=== PATIENT | female | born 2000 | race Caucasian/White ===

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

== ENCOUNTER 2020-04-05 17:01 | Emergency (ER) | payer OTHER ==
[~2020-04-05] VITALS: Ht 144.7 cm; Wt 72.6 kg
[2020-04-05] MEDS ORDERED: NAPROXEN D/R500 MG PO (21:57)
[2020-04-05] MEDS ORDERED: Orphenadrine C100 MG PO (21:57)
[2020-04-05 22:08] VITALS: BP 108/57
== END 2020-04-05 22:08 | disposition home or self-care (01) ==
LOC: ED 17:01
DX: S16.1XXA Strain of muscle, fascia and tendon at neck level, initial encounter (principal); S46.911A Strain of unspecified muscle, fascia and tendon at shoulder and upper arm level, right arm, initial encounter; J45.909 Unspecified asthma, uncomplicated; Z79.899 Other long term (current) drug therapy; V89.2XXA Person injured in unspecified motor-vehicle accident, traffic, initial encounter; Y93.89 Activity, other specified; Y92.89 Other specified places as the place of occurrence of the external cause; Y99.8 Other external cause status

== ENCOUNTER → 2020-07-08 | Outpatient (CLI) | payer OTHER ==
[~2020-07-08] MED LIST changes: +NAPROXEN D/R500 MG PO; +Orphenadrine C100 MG PO
== END | disposition home or self-care (01) ==
LOC: LAB
PROVIDERS: ATTEND Internal Medicine Gastroenterology
DX: R19.7 Diarrhea, unspecified (principal)

== ENCOUNTER → 2020-07-09 | Outpatient (CLI) | payer OTHER ==
[2020-07-11 16:08] LABS: ACCA 9 units (0-90); ALCA 3 units (0-60); AMCA 16 units (0-100); ATYPICAL PANCA Negative (Negative); GASCA 24 units (0-50)
== END | disposition home or self-care (01) ==
LOC: LAB 08:41 → US 10:00
PROVIDERS: ATTEND Internal Medicine Gastroenterology
DX: R11.2 Nausea with vomiting, unspecified (principal); R10.11 Right upper quadrant pain

== ENCOUNTER → 2021-07-05 | Outpatient (CLI) | payer OTHER ==
[2021-07-10 00:06] LABS: TB1 Ag VALUE 0.08 IU/mL (.)
== END | disposition home or self-care (01) ==
LOC: LAB 16:53
PROVIDERS: ATTEND Family Medicine
DX: Z02.0 Encounter for examination for admission to educational institution (principal)

== ENCOUNTER → 2021-07-24 | Outpatient (CLI) | payer OTHER ==
[2021-07-24 09:42] LABS: BETA-HCG, QUANT < 1.0 mIU/mL (1-3)
[2021-07-25 04:06] LABS: FOLLICLE STIMULATING HORMONE 7.3 mIU/mL (.); LUTEINIZING HORMONE 7.6 mIU/mL (.); PROLACTIN 13.9 ng/mL (4.8-23.3)
== END | disposition home or self-care (01) ==
LOC: LAB 08:46
PROVIDERS: ATTEND Nurse Practitioner Women's Health
DX: N93.9 Abnormal uterine and vaginal bleeding, unspecified (principal)

== ENCOUNTER 2021-08-15 20:14 | Emergency (ER) | payer OTHER ==
[~2021-08-15] VITALS: Ht 144.7 cm; Wt 90.7 kg
[2021-08-15 20:28] VITALS: BP 128/74
[2021-08-15 21:00] LABS: BASO % 0.4 % (0.0-1.0); EOS # 0.5 10*3/uL (0.0-0.4); HEMATOCRIT 38.9 % (37.0-47.0); LYMPH # 2.4 10*3/uL (1.3-4.4); LYMPH % 30.4 % (27.0-41.0); MEAN CELL VOLUME 83.7 fl (81.0-99.0); MEAN CORPUSCULAR HGB 27.1 pg (27.0-31.0); MEAN CORPUSCULAR HGB CONC 32.4 g/dl (33.0-37.0); MEAN PLATELET VOLUME 10.5 fl (9.6-12.3); MONO # 0.8 10*3/uL (0.1-1.0); MONO % 10.3 % (3.0-9.0); NEUT # 4.2 10*3/uL (2.3-7.9); NEUT % 52.7 % (47.0-73.0); PLATELET COUNT AUTOMATED 264 10*3/uL (130-400); RED BLOOD COUNT 4.65 10*6/uL (4.10-5.10); RED CELL DISTRI WIDTH 12.5 % (0-14.5)
[2021-08-15 21:16] LABS: ALBUMIN 3.7 gm/dl (3.1-4.5); ALKALINE PHOSPHATASE 75 U/L (45-117); BUN 9 mg/dl (7-24); CHLORIDE 112 mmol/L (98-107); CREATININE 0.58 mg/dL (0.55-1.02); POTASSIUM 3.7 mmol/L (3.5-5.1); SGOT/AST 50 IU/L (3-35); SGPT/ALT 101 U/L (12-78); SODIUM 142 mmol/L (136-145); TOTAL PROTEIN 7.2 gm/dL (6.4-8.2)
[2021-08-15 21:19] LABS: B-hCG (QUALITATIVE) NEGATIVE (NEGATIVE)
[2021-08-15 22:28] LABS: BILIRUBIN Negative (Negative); BLOOD Negative (Negative); CLARITY Clear (Clear); COLOR Yellow (Yellow); GLUCOSE Negative (Negative); KETONE Negative (Negative); LEUKO ESTERASE Negative (Negative); NITRITE Negative (Negative); PH 7.5 (4.5-8.0); SPECIFIC GRAVITY 1.015 (1.001-1.030); UROBILINOGEN 0.2 E.U./dl (0.0-1.0)
[2021-08-15 22:47] LABS: BACTERIA 1+; EPITHELIAL CELLS 16-20; RBC 0-2 rbc/hpf (0-2)
[2021-08-16] MEDS ORDERED: HYDROCODON-ACE1 EACH PO (01:24)
== END 2021-08-16 01:34 | disposition home or self-care (01) ==
LOC: ED 20:14
PROVIDERS: Physician Assistant
DX: R10.32 Left lower quadrant pain (principal)

== ENCOUNTER 2021-08-16 23:38 | Emergency (ER) | payer OTHER ==
[~2021-08-16 23:38] MED LIST changes: +HYDROCODON-ACE1 EACH PO
[2021-08-16 23:49] VITALS: BP 121/84
[2021-08-18] MEDS ORDERED: Synthroid,Levo50 MCG PO (16:10)
[2021-08-18] MEDS ORDERED: PROTONIX40 MG PO (16:10)
[2021-08-18] MEDS ORDERED: CLARITIN10 MG PO (16:10)
== END 2021-08-17 01:36 | disposition left against medical advice (07) ==
LOC: ED 23:38
DX: R10.2 Pelvic and perineal pain (principal)

== ENCOUNTER 2021-08-18 15:27 | Emergency (ER) | payer OTHER ==
[~2021-08-18] VITALS: Ht 144.7 cm; Wt 90.7 kg
[2021-08-18 15:47] VITALS: BP 122/74
[2021-08-18] MEDS ORDERED: PROTONIX40 MG PO (16:10)
[2021-08-18] MEDS ORDERED: CLARITIN10 MG PO (16:10)
[2021-08-18] MEDS ORDERED: Synthroid,Levo50 MCG PO (16:10)
[2021-08-18 16:47] LABS: BASO # 0.1 10*3/uL (0.0-0.1); BASO % 0.6 % (0.0-1.0); EOS # 0.5 10*3/uL (0.0-0.4); EOS % 6.3 % (1.0-4.0); HEMATOCRIT 40.5 % (37.0-47.0); LYMPH # 1.9 10*3/uL (1.3-4.4); LYMPH % 24.5 % (27.0-41.0); MEAN CELL VOLUME 82.5 fl (81.0-99.0); MEAN CORPUSCULAR HGB 26.7 pg (27.0-31.0); MEAN CORPUSCULAR HGB CONC 32.3 g/dl (33.0-37.0); MEAN PLATELET VOLUME 10.8 fl (9.6-12.3); MONO # 0.7 10*3/uL (0.1-1.0); MONO % 8.4 % (3.0-9.0); NEUT # 4.7 10*3/uL (2.3-7.9); NEUT % 59.9 % (47.0-73.0); PLATELET COUNT AUTOMATED 276 10*3/uL (130-400); RED BLOOD COUNT 4.91 10*6/uL (4.10-5.10); RED CELL DISTRI WIDTH 12.4 % (0-14.5); WHITE BLOOD COUNT 7.9 10*3/uL (4.8-10.8)
[2021-08-18 17:09] LABS: ALBUMIN 4.2 gm/dl (3.1-4.5); ALKALINE PHOSPHATASE 70 U/L (45-117); BUN 8 mg/dl (7-24); CHLORIDE 109 mmol/L (98-107); CREATININE 0.57 mg/dL (0.55-1.02); LIPASE 57 U/L (73-393); POTASSIUM 3.9 mmol/L (3.5-5.1); SGOT/AST 154 IU/L (3-35); SGPT/ALT 202 U/L (12-78); SODIUM 140 mmol/L (136-145); TOTAL PROTEIN 7.8 gm/dL (6.4-8.2)
[2021-08-18 17:32] LABS: BILIRUBIN Negative (Negative); BLOOD Negative (Negative); CLARITY Clear (Clear); COLOR Dark Yellow (Yellow); GLUCOSE Negative (Negative); KETONE Negative (Negative); LEUKO ESTERASE Negative (Negative); NITRITE Positive (Negative)
[2021-08-18 18:02] LABS: RBC 0-2 rbc/hpf (0-2); WBC 0-2 wbc/hpf (0-5)
== END 2021-08-18 19:38 | disposition admitted as inpatient to this hospital (09) ==
LOC: ED 15:27 → EDHOLD 18:52 → ED 19:38
PROVIDERS: Physician Assistant
DX: R10.30 Lower abdominal pain, unspecified (principal); R10.2 Pelvic and perineal pain; Z79.899 Other long term (current) drug therapy

== ENCOUNTER 2021-08-18 18:59 | Inpatient (IN) | payer OTHER ==
[~2021-08-18] VITALS: Ht 144.8 cm; Wt 90.4 kg
[~2021-08-18 18:59] MED LIST changes: +CLARITIN10 MG PO; +PROTONIX40 MG PO; +Synthroid,Levo50 MCG PO
[2021-08-18 20:19] VITALS: BP 105/51
[2021-08-19] VITALS (8 sets, daily range): BP systolic 105–131; BP diastolic 52–72
[2021-08-19 00:36] LABS: BETA-HCG, QUANT < 1.0 mIU/mL (1-3)
[2021-08-19 06:13] LABS: CHLORIDE 110 mmol/L (98-107); POTASSIUM 3.3 mmol/L (3.5-5.1); SGOT/AST 135 IU/L (3-35); SGPT/ALT 194 U/L (12-78); SODIUM 140 mmol/L (136-145)
[2021-08-19 06:19] LABS: BASO # 0.1 10*3/uL (0.0-0.1); BASO % 0.7 % (0.0-1.0); EOS # 0.6 10*3/uL (0.0-0.4); EOS % 6.9 % (1.0-4.0); HEMATOCRIT 39.6 % (37.0-47.0); LYMPH % 35.4 % (27.0-41.0); MEAN CELL VOLUME 85.2 fl (81.0-99.0); MEAN CORPUSCULAR HGB 26.9 pg (27.0-31.0); MEAN CORPUSCULAR HGB CONC 31.6 g/dl (33.0-37.0); MEAN PLATELET VOLUME 11.2 fl (9.6-12.3); MONO # 0.9 10*3/uL (0.1-1.0); MONO % 10.7 % (3.0-9.0); NEUT # 3.9 10*3/uL (2.3-7.9); NEUT % 46.1 % (47.0-73.0); PLATELET COUNT AUTOMATED 259 10*3/uL (130-400); RED BLOOD COUNT 4.65 10*6/uL (4.10-5.10); RED CELL DISTRI WIDTH 12.5 % (0-14.5); WHITE BLOOD COUNT 8.5 10*3/uL (4.8-10.8)
[2021-08-19 06:38] LABS: ALBUMIN 3.7 gm/dl (3.1-4.5); ALKALINE PHOSPHATASE 67 U/L (45-117); BUN 9 mg/dl (7-24); CREATININE 0.53 mg/dL (0.55-1.02); FREE T4 1.19 ng/dl (0.76-1.46); TOTAL PROTEIN 6.9 gm/dL (6.4-8.2)
[2021-08-19 07:59] LABS: BILIRUBIN Negative (Negative); BLOOD Negative (Negative); CLARITY Clear (Clear); COLOR Dark Yellow (Yellow); GLUCOSE Negative (Negative); KETONE Negative (Negative); LEUKO ESTERASE Negative (Negative); NITRITE Positive (Negative); SPECIFIC GRAVITY <= 1.005 (1.001-1.030)
[2021-08-19 09:13] LABS: BACTERIA TRACE; EPITHELIAL CELLS 0-2; WBC 0-2 wbc/hpf (0-5)
[2021-08-20] VITALS: BP 131/72
[2021-08-20 05:06] LABS: HEP B CORE AB, IGM Negative (Negative); HEPATITIS B SURFACE AG Negative (Negative); HEPATITIS C VIRUS ANTIBODY <0.1 s/co (0.0-0.9)
[2021-08-20 06:38] LABS: BASO % 0.5 % (0.0-1.0); EOS # 0.5 10*3/uL (0.0-0.4); EOS % 6.3 % (1.0-4.0); HEMATOCRIT 39.6 % (37.0-47.0); LYMPH # 2.8 10*3/uL (1.3-4.4); LYMPH % 36.2 % (27.0-41.0); MEAN CELL VOLUME 86.7 fl (81.0-99.0); MEAN CORPUSCULAR HGB 27.4 pg (27.0-31.0); MEAN CORPUSCULAR HGB CONC 31.6 g/dl (33.0-37.0); MEAN PLATELET VOLUME 11.1 fl (9.6-12.3); MONO # 0.7 10*3/uL (0.1-1.0); MONO % 9.4 % (3.0-9.0); NEUT # 3.7 10*3/uL (2.3-7.9); NEUT % 47.3 % (47.0-73.0); PLATELET COUNT AUTOMATED 240 10*3/uL (130-400); RED BLOOD COUNT 4.57 10*6/uL (4.10-5.10); RED CELL DISTRI WIDTH 12.6 % (0-14.5); WHITE BLOOD COUNT 7.8 10*3/uL (4.8-10.8)
[2021-08-20 07:01] LABS: ALBUMIN 3.2 gm/dl (3.1-4.5); BUN 10 mg/dl (7-24); CHLORIDE 112 mmol/L (98-107); CREATININE 0.39 mg/dL (0.55-1.02); SGOT/AST 136 IU/L (3-35); SGPT/ALT 188 U/L (12-78); SODIUM 137 mmol/L (136-145)
[2021-08-20 07:03] LABS: TOTAL PROTEIN 6.9 gm/dL (6.4-8.2)
[2021-08-20 07:05] LABS: POTASSIUM 4.3 mmol/L (3.5-5.1)
[2021-08-20 07:12] LABS: ALKALINE PHOSPHATASE 61 U/L (45-117)
[2021-08-20 08:00] VITALS: BP 124/72
[2021-08-20] MEDS ORDERED: PROBIOTIC1 EAC1 PO (11:47)
[2021-08-20] MEDS ORDERED: IBU800 MG PO (11:55)
[2021-08-20] MEDS ORDERED: MORGIDOX100 MG PO (11:55)
[2021-08-20] MEDS ORDERED: FLUCONAZOLE100 MG PO (11:55)
[2021-08-20] MEDS ORDERED: METRONIDAZOLE500 M1 PO (11:55)
[2021-08-20] MEDS ORDERED: ENDOCET 5-3251 EACH PO (11:56)
[2021-08-20 12:00] VITALS: BP 118/70
== END 2021-08-20 14:30 | disposition home or self-care (01) | DRG 758 ==
LOC: EDHOLD 18:59 → 5E 18:59
PROVIDERS: Internal Medicine; Nurse Practitioner Adult Health; Student in an Organized Health Care Education/Training Program; ADMIT Family Medicine; ATTEND Family Medicine
DX: N73.9 Female pelvic inflammatory disease, unspecified (principal); N39.0 Urinary tract infection, site not specified; K52.9 Noninfective gastroenteritis and colitis, unspecified; N76.0 Acute vaginitis; B37.3 Candidiasis of vulva and vagina; R74.01 Elevation of levels of liver transaminase levels; R73.9 Hyperglycemia, unspecified; E87.8 Other disorders of electrolyte and fluid balance, not elsewhere classified; E03.9 Hypothyroidism, unspecified; B96.89 Other specified bacterial agents as the cause of diseases classified elsewhere; K75.81 Nonalcoholic steatohepatitis (NASH); Z79.899 Other long term (current) drug therapy

== ENCOUNTER → 2021-08-22 | Outpatient (CLI) | payer OTHER ==
[~2021-08-22] MED LIST changes: +ENDOCET 5-3251 EACH PO; +FLUCONAZOLE100 MG PO; +IBU800 MG PO; +METRONIDAZOLE500 M1 PO; +MORGIDOX100 MG PO; +PROBIOTIC1 EAC1 PO
[2021-08-22 14:34] LABS: HEMATOCRIT 40.9 % (37.0-47.0); MEAN CELL VOLUME 83.5 fl (81.0-99.0); MEAN CORPUSCULAR HGB 27.6 pg (27.0-31.0); RED BLOOD COUNT 4.9 10*6/uL (4.10-5.10); RED CELL DISTRI WIDTH 12.7 % (0-14.5); WHITE BLOOD COUNT 7.3 10*3/uL (4.8-10.8)
[2021-08-22 14:53] LABS: ALKALINE PHOSPHATASE 66 U/L (45-117); BUN 9 mg/dl (7-24); CHLORIDE 108 mmol/L (98-107); CHOLESTEROL 164 mg/dL (<200); CREATININE 0.52 mg/dL (0.55-1.02); POTASSIUM 4.1 mmol/L (3.5-5.1); SGOT/AST 128 IU/L (3-35); SGPT/ALT 232 U/L (12-78); SODIUM 139 mmol/L (136-145); TOTAL PROTEIN 7.9 gm/dL (6.4-8.2); TRIGLYCERIDES 119 mg/dl (<150)
[2021-08-22 14:54] LABS: LDL CHOLESTEROL 97 mg/dL (9-159)
[2021-08-22 15:16] LABS: VITAMIN D, 25-HYDROXY 35.5 ng/mL (30-100)
[2021-08-23 08:07] LABS: HEP B CORE AB, IGM Negative (Negative); HEPATITIS B SURFACE AG Negative (Negative); HEPATITIS C VIRUS ANTIBODY 0.1 s/co (0.0-0.9)
[2021-08-23 09:06] LABS: RHEUMATOID ARTHRITIS FACTOR <10.0 IU/mL (0.0-13.9)
[2021-08-23 16:07] LABS: ANTI-SMOOTH MUSCLE ANTIBODY 6 Units (0-19)
[2021-08-24 09:06] LABS: TESTOSTERONE FREE, (DIRECT) 4.5 pg/mL (0.0-4.2)
== END | disposition home or self-care (01) ==
LOC: LAB 13:46
PROVIDERS: ATTEND Family Medicine
DX: R79.89 Other specified abnormal findings of blood chemistry (principal); E55.9 Vitamin D deficiency, unspecified; R53.83 Other fatigue; E28.2 Polycystic ovarian syndrome; M79.10 Myalgia, unspecified site; M25.50 Pain in unspecified joint; Z72.51 High risk heterosexual behavior

== ENCOUNTER → 2021-08-27 | Outpatient (CLI) | payer OTHER ==
[2021-08-28 10:07] LABS: THYROID PEROXIDASE (TPO) AB 13 IU/mL (0-34)
[2021-08-28 11:07] LABS: ANTI-DSDNA ANTIBODIES 2 IU/mL (0-9)
[2021-08-28 21:06] LABS: HEPATITIS C QUANTITATION HCV Not Detected IU/mL (.)
== END | disposition home or self-care (01) ==
LOC: LAB 12:06
PROVIDERS: ATTEND Family Medicine
DX: B19.20 Unspecified viral hepatitis C without hepatic coma (principal); R76.0 Raised antibody titer

== ENCOUNTER → 2021-08-28 | Outpatient (CLI) | payer OTHER | END | disposition home or self-care (01) | LOC: US 14:29 | PROVIDERS: ATTEND Family Medicine | DX: R10.2 Pelvic and perineal pain (principal) ==

== ENCOUNTER 2023-03-15 11:05 | Emergency (ER) | payer OTHER ==
[~2023-03-15] VITALS: Ht 144.7 cm; Wt 72.6 kg
[2023-03-15 11:47] LABS: BILIRUBIN Negative (Negative); BLOOD Negative (Negative); CLARITY Clear (Clear); COLOR Dark Yellow (Yellow); GLUCOSE Negative (Negative); KETONE 1+ (Negative); LEUKO ESTERASE 1+ (Negative); NITRITE Negative (Negative); SPECIFIC GRAVITY >= 1.030 (1.001-1.030)
[2023-03-15 11:55] LABS: BASO % 0.4 % (0.0-1.0); EOS # 0.1 10*3/uL (0.0-0.4); HEMATOCRIT 40.7 % (37.0-47.0); LYMPH # 2.1 10*3/uL (1.3-4.4); MEAN CELL VOLUME 83.9 fl (81.0-99.0); MEAN CORPUSCULAR HGB 28.2 pg (27.0-31.0); MEAN CORPUSCULAR HGB CONC 33.7 g/dl (33.0-37.0); MEAN PLATELET VOLUME 10.3 fl (9.6-12.3); MONO # 0.7 10*3/uL (0.1-1.0); MONO % 8.2 % (3.0-9.0); NEUT # 6.1 10*3/uL (2.3-7.9); NEUT % 67.1 % (47.0-73.0); PLATELET COUNT AUTOMATED 312 10*3/uL (130-400); RED BLOOD COUNT 4.85 10*6/uL (4.10-5.10); RED CELL DISTRI WIDTH 12.8 % (0-14.5); WHITE BLOOD COUNT 9.1 10*3/uL (4.8-10.8)
[2023-03-15 11:55] LABS: BACTERIA 2+; MUCOUS 2+
[2023-03-15 12:17] LABS: ALKALINE PHOSPHATASE 69 U/L (46-116); BUN 9 mg/dl (9-23); CHLORIDE 106 mmol/L (98-107); LIPASE 25 U/L (12-53); POTASSIUM 3.6 mmol/L (3.4-5.1); SGPT/ALT 19 U/L (10-49); TOTAL PROTEIN 7.8 gm/dL (6.0-8.0)
[2023-03-15 12:24] LABS: URINE AMPHETAMINES Negative (1000ng/ml); URINE BARBITURATES Negative (200ng/ml); URINE BENZODIAZEPINES Negative (200ng/ml); URINE CANNABINOIDS (THC) Positive (50ng/ml); URINE COCAINE Negative (300ng/ml); URINE METHADONE Negative (300ng/ml); URINE OPIATES Negative (300ng/ml); URINE PHENCYCLIDINE Negative (25ng/ml)
[2023-03-15 12:50] LABS: BETA-HCG, QUANT < 3.0 mIU/mL (3-10); ETHYL ALCOHOL < 3.0 mg/dl (<3)
[2023-03-16 08:46] VITALS: BP 101/81
== END 2023-03-16 14:41 ==
LOC: ED 11:05
PROVIDERS: Nurse Practitioner Family
DX: F31.9 Bipolar disorder, unspecified (principal); N39.0 Urinary tract infection, site not specified; J45.909 Unspecified asthma, uncomplicated; Z98.890 Other specified postprocedural states; Z88.8 Allergy status to other drugs, medicaments and biological substances; Z79.899 Other long term (current) drug therapy; Z20.822 Contact with and (suspected) exposure to COVID-19

== ENCOUNTER → 2023-05-19 | Outpatient (CLI) | payer OTHER | END | disposition home or self-care (01) | LOC: LAB 09:56 | PROVIDERS: ATTEND Nurse Practitioner Family | DX: Z79.899 Other long term (current) drug therapy (principal) ==

== ENCOUNTER → 2023-12-08 | Outpatient (CLI) | payer OTHER ==
[2023-12-08 11:38] LABS: BASO # 0.1 10*3/uL (0.0-0.1); BASO % 0.7 % (0.0-1.0); EOS # 0.6 10*3/uL (0.0-0.4); HEMATOCRIT 45.9 % (37.0-47.0); LYMPH # 2.5 10*3/uL (1.3-4.4); LYMPH % 24.9 % (27.0-41.0); MEAN CELL VOLUME 87.9 fl (81.0-99.0); MEAN CORPUSCULAR HGB 27.6 pg (27.0-31.0); MEAN CORPUSCULAR HGB CONC 31.4 g/dl (33.0-37.0); MEAN PLATELET VOLUME 10.2 fl (9.6-12.3); MONO # 0.6 10*3/uL (0.1-1.0); MONO % 6.4 % (3.0-9.0); NEUT # 6.2 10*3/uL (2.3-7.9); NEUT % 61.4 % (47.0-73.0); PLATELET COUNT AUTOMATED 311 10*3/uL (130-400); RED BLOOD COUNT 5.22 10*6/uL (4.10-5.10); RED CELL DISTRI WIDTH 12.7 % (0-14.5)
[2023-12-08 12:05] LABS: CPK 93 U/L (34-171); SGPT/ALT 75 U/L (5-49); URIC ACID 6.6 mg/dL (3.1-7.8)
[2023-12-09 12:08] LABS: CCP ANTIBODIES IGG/IGA 7 units (0-19)
== END | disposition home or self-care (01) ==
LOC: LAB 10:30
PROVIDERS: Internal Medicine Rheumatology; ATTEND Internal Medicine
DX: M85.89 Other specified disorders of bone density and structure, multiple sites (principal); M05.79 Rheumatoid arthritis with rheumatoid factor of multiple sites without organ or systems involvement; M10.9 Gout, unspecified

== ENCOUNTER → 2024-09-29 | Outpatient (CLI) | payer BC ==
[2024-09-29 08:33] LABS: BASO # 0.1 10*3/uL (0.0-0.1); BASO % 0.6 % (0.0-1.0); EOS # 0.5 10*3/uL (0.0-0.4); EOS % 3.4 % (1.0-4.0); HEMATOCRIT 38.3 % (37.0-47.0); MEAN CELL VOLUME 84.9 fl (81.0-99.0); MEAN CORPUSCULAR HGB 27.3 pg (27.0-31.0); MEAN CORPUSCULAR HGB CONC 32.1 g/dl (33.0-37.0); MONO % 7.3 % (3.0-9.0); NEUT # 9.5 10*3/uL (2.3-7.9); NEUT % 68.8 % (47.0-73.0); PLATELET COUNT AUTOMATED 329 10*3/uL (130-400); RED BLOOD COUNT 4.51 10*6/uL (4.10-5.10); RED CELL DISTRI WIDTH 14.2 % (0-14.5); WHITE BLOOD COUNT 13.9 10*3/uL (4.8-10.8)
[2024-09-29 09:42] LABS: ALKALINE PHOSPHATASE 89 U/L (46-116); BUN 8 mg/dl (9-23); CHLORIDE 108 mmol/L (98-107); POTASSIUM 4.3 mmol/L (3.4-5.1); SGPT/ALT 57 U/L (5-49); TOTAL PROTEIN 7.4 gm/dL (6.0-8.0)
[2024-09-29 09:59] LABS: FREE T4 1.52 ng/dl (0.89-1.76); T3 UPTAKE 32.5 % (22.4-36.7)
== END | disposition home or self-care (01) ==
LOC: LAB 08:07
PROVIDERS: ATTEND Nurse Practitioner Family
DX: Z79.899 Other long term (current) drug therapy (principal)